=== PATIENT | female | born 1940 | race Caucasian/White ===

== ENCOUNTER 2016-03-30 14:43 | Inpatient (IN) | payer OTHER ==
[~2016-03-30] VITALS: Ht 149.9 cm; Wt 67.4 kg
[2016-03-30] MEDS ORDERED: DUONEB INH ONE ×2 (16:09)
[2016-03-30] MEDS ORDERED: Furosemide 40 MG/4 ML VIAL ONE (16:13)
[2016-03-30] MEDS ORDERED: SALINE FLUSH 10 ML FLUSH PRN (17:30)
[2016-03-30] MEDS ORDERED: ED DILTIAZEM DRIP 125 ML IV ONE (17:31)
[2016-03-30] MEDS ORDERED: DILTIAZEM 50 MG/10 ML VIAL IV ONE (17:32)
[2016-03-30] MEDS ORDERED: DEXTROSE 50% SYRINGE 50 ML IV PRN (19:10)
[2016-03-30] MEDS ORDERED: GLUCAGON 1 MG VIAL IM PRN (19:10)
[2016-03-30] MEDS: DUONEB INH SCH ×2 (19:10→22:53)
[2016-03-30] MEDS ORDERED: CYCLOBENZAPRINE 10 MG TAB PO PRN (19:10)
[2016-03-30] MEDS ORDERED: DIGOXIN 0.125 MG TAB PO SCH (19:15)
[2016-03-30] MEDS ORDERED: CARDIZEM 1 MG/ML DRIP 125 ML IV SCH (19:15)
[2016-03-30] MEDS ORDERED: Carvedilol 6.25 MG TAB PO SCH (21:00)
[2016-03-30 22:00] VITALS: BP_SYST 86; BP_SYST 88; RESP 20; TEMP 95.2; Ht 149.9 cm; Wt 67.4 kg
[2016-03-30 22:55] VITALS: RESP 18
[2016-03-30] MEDS: APIXABAN 2.5 MG TAB PO SCH (23:31)
[2016-03-30] MEDS: LEVEMIR INSULIN SUBQ SCH (23:40)
[2016-03-30 23:45] VITALS: BP_SYST 106; RESP 18; TEMP 96.4
[2016-03-30] MEDS: SALINE FLUSH 10 ML FLUSH SCH (23:45)
[2016-03-31 04:20] VITALS: BP_SYST 112; RESP 16; TEMP 96.3
[2016-03-31] MEDS: SODIUM CHLORIDE 0.9% FLUSH BAG 500 ML IV SCH (06:40)
[2016-03-31] MEDS: LEVOFLOXACIN 500 MG/100 ML 100 ML IV SCH (06:46)
[2016-03-31] MEDS: DUONEB INH SCH ×8 (06:53→22:44)
[2016-03-31 07:57] VITALS: BP_SYST 110; RESP 16; TEMP 96
[2016-03-31] MEDS: APIXABAN 2.5 MG TAB PO SCH ×2 (08:38→20:06)
[2016-03-31] MEDS: Carvedilol 6.25 MG TAB PO SCH ×2 (08:38→20:06)
[2016-03-31] MEDS: Furosemide 40 MG/4 ML VIAL IV SCH ×2 (08:38→17:46)
[2016-03-31] MEDS: SALINE FLUSH 10 ML FLUSH SCH ×2 (08:38→20:06)
[2016-03-31] MEDS: LEVEMIR INSULIN SUBQ SCH ×2 (08:39→17:00)
[2016-03-31] MEDS ORDERED: DIGOXIN 0.125 MG TAB PO SCH (09:00)
[2016-03-31] MEDS ORDERED: Losartan 25 MG TAB PO SCH (09:00)
[2016-03-31 15:17] VITALS: BP_SYST 112; RESP 18; TEMP 97.2
[2016-03-31] MEDS ORDERED: KAYEXOLATE 15 GM/60 ML BTL PO ONE (17:50)
[2016-03-31] MEDS ORDERED: SODIUM CHLORIDE 0.9% 250 ML IV ONE (18:15)
[2016-03-31] MEDS: FLUCONAZOLE 100 MG TAB PO SCH (20:06)
[2016-03-31] MEDS: NYSTATIN SUSP FOR CPD 120 ML, DIPHENHYDRAMINE (FOR COMPOUND) 120 ML, HYDROCORT SOD SUC ... SWISH.SWAL SCH ×3 (20:07)
[2016-03-31 20:32] VITALS: BP_SYST 132; RESP 18; TEMP 97.5
[2016-03-31 23:09] VITALS: BP_SYST 104; RESP 18; TEMP 97.8
[2016-04-01 04:22] VITALS: BP_SYST 130; RESP 18; TEMP 97.1
[2016-04-01] MEDS: SODIUM CHLORIDE 0.9% FLUSH BAG 500 ML IV SCH (06:36)
[2016-04-01] MEDS: DUONEB INH SCH ×7 (07:00→23:26)
[2016-04-01 07:56] VITALS: BP_SYST 110; RESP 18
[2016-04-01] MEDS: LEVEMIR INSULIN SUBQ SCH ×2 (08:00→17:00)
[2016-04-01] MEDS: SALINE FLUSH 10 ML FLUSH SCH ×2 (08:19→20:33)
[2016-04-01] MEDS: LEVOFLOXACIN 500 MG/100 ML 100 ML IV SCH (08:20)
[2016-04-01] MEDS: APIXABAN 2.5 MG TAB PO SCH ×2 (08:20→20:32)
[2016-04-01] MEDS: Carvedilol 6.25 MG TAB PO SCH ×2 (08:20→20:32)
[2016-04-01] MEDS: Furosemide 40 MG/4 ML VIAL IV SCH (08:20)
[2016-04-01] MEDS: NYSTATIN SUSP FOR CPD 120 ML, DIPHENHYDRAMINE (FOR COMPOUND) 120 ML, HYDROCORT SOD SUC ... SWISH.SWAL SCH ×12 (08:27→20:33)
[2016-04-01] MEDS: FLUCONAZOLE 100 MG TAB PO SCH (08:37)
[2016-04-01] MEDS ORDERED: MISSING DOSE XX ONE ×2 (10:25→20:30)
[2016-04-01] MEDS ORDERED: KCL CR 20 MEQ TAB PO ONE (13:20)
[2016-04-01 21:00] VITALS: BP_SYST 114; RESP 18; TEMP 97.4
[2016-04-01 23:55] VITALS: BP_SYST 120; RESP 20; TEMP 97.4
[2016-04-02] MEDS: SODIUM CHLORIDE 0.9% FLUSH BAG 500 ML IV SCH (04:09)
[2016-04-02 04:30] VITALS: BP_SYST 132; RESP 22; TEMP 96.9
[2016-04-02] MEDS: DUONEB INH SCH ×5 (06:24→22:50)
[2016-04-02 07:29] VITALS: BP_SYST 122; RESP 18; TEMP 96.4
[2016-04-02] MEDS: Carvedilol 6.25 MG TAB PO SCH ×2 (07:57→21:39)
[2016-04-02] MEDS: FLUCONAZOLE 100 MG TAB PO SCH (07:57)
[2016-04-02] MEDS: APIXABAN 2.5 MG TAB PO SCH ×2 (07:58→21:39)
[2016-04-02] MEDS: Furosemide 40 MG/4 ML VIAL IV SCH (07:58)
[2016-04-02] MEDS: LEVEMIR INSULIN SUBQ SCH ×2 (07:59→17:53)
[2016-04-02] MEDS: NYSTATIN SUSP FOR CPD 120 ML, DIPHENHYDRAMINE (FOR COMPOUND) 120 ML, HYDROCORT SOD SUC ... SWISH.SWAL SCH ×12 (08:00→21:39)
[2016-04-02] MEDS: SALINE FLUSH 10 ML FLUSH SCH ×2 (08:00→21:55)
[2016-04-02] MEDS: LEVOFLOXACIN 500 MG/100 ML 100 ML IV SCH (08:09)
[2016-04-02 11:36] VITALS: BP_SYST 130; RESP 22; TEMP 94.8
[2016-04-02] MEDS ORDERED: MISSING DOSE XX ONE (11:55)
[2016-04-02] MEDS: TUSSIONEX SUSP UDC PO SCH ×2 (12:22→21:39)
[2016-04-02] MEDS: Furosemide 40 MG TAB PO SCH (16:16)
[2016-04-02 16:23] VITALS: BP_SYST 138; RESP 18; TEMP 96.2
[2016-04-02 20:13] VITALS: BP_SYST 118; RESP 106; RESP 16; TEMP 97.5
[2016-04-03] MEDS: SODIUM CHLORIDE 0.9% FLUSH BAG 500 ML IV SCH (01:03)
[2016-04-03 03:29] VITALS: BP_SYST 100; RESP 16; TEMP 97.5
[2016-04-03] MEDS: DUONEB INH SCH ×5 (06:56→22:37)
[2016-04-03] MEDS: LEVEMIR INSULIN SUBQ SCH ×2 (08:00→17:30)
[2016-04-03 08:12] VITALS: BP_SYST 130; RESP 16; TEMP 95.4
[2016-04-03] MEDS: SALINE FLUSH 10 ML FLUSH SCH ×2 (08:31→19:47)
[2016-04-03] MEDS: FLUCONAZOLE 100 MG TAB PO SCH (08:32)
[2016-04-03] MEDS: Furosemide 40 MG TAB PO SCH ×2 (08:32→17:29)
[2016-04-03] MEDS: Carvedilol 6.25 MG TAB PO SCH ×2 (08:32→20:24)
[2016-04-03] MEDS: APIXABAN 2.5 MG TAB PO SCH ×2 (08:32→20:24)
[2016-04-03] MEDS: LEVOFLOXACIN 500 MG/100 ML 100 ML IV SCH (08:33)
[2016-04-03] MEDS: NYSTATIN SUSP FOR CPD 120 ML, DIPHENHYDRAMINE (FOR COMPOUND) 120 ML, HYDROCORT SOD SUC ... SWISH.SWAL SCH ×12 (08:34→20:25)
[2016-04-03] MEDS ORDERED: MISSING DOSE XX ONE (10:20)
[2016-04-03] MEDS: TUSSIONEX SUSP UDC PO SCH ×2 (11:09→20:24)
[2016-04-03 12:27] VITALS: BP_SYST 100; RESP 16; TEMP 95.2
[2016-04-03] MEDS: LINEZOLID 600 MG/300 ML 300 ML IV SCH (13:39)
[2016-04-03] MEDS ORDERED: MICONAZOLE 2% PWD TOPICAL PRN (15:55)
[2016-04-03 16:10] VITALS: BP_SYST 118; TEMP 96
[2016-04-03 20:18] VITALS: BP_SYST 124; RESP 16; TEMP 96.5
[2016-04-03 23:30] VITALS: BP_SYST 114; RESP 16; TEMP 97.1
[2016-04-04 03:39] VITALS: BP_SYST 124; RESP 16; TEMP 96.7
[2016-04-04] MEDS: SODIUM CHLORIDE 0.9% FLUSH BAG 500 ML IV SCH (06:13)
[2016-04-04] MEDS: DUONEB INH SCH ×5 (06:14→22:30)
[2016-04-04] MEDS: LINEZOLID 600 MG/300 ML 300 ML IV SCH (08:02)
[2016-04-04] MEDS: SALINE FLUSH 10 ML FLUSH SCH ×2 (08:02→21:18)
[2016-04-04 08:14] VITALS: BP_SYST 115; RESP 16; TEMP 97
[2016-04-04] MEDS: LEVEMIR INSULIN SUBQ SCH ×2 (09:22→17:23)
[2016-04-04] MEDS: NYSTATIN SUSP FOR CPD 120 ML, DIPHENHYDRAMINE (FOR COMPOUND) 120 ML, HYDROCORT SOD SUC ... SWISH.SWAL SCH ×12 (09:23→21:18)
[2016-04-04] MEDS: FLUCONAZOLE 100 MG TAB PO SCH (09:23)
[2016-04-04] MEDS: TUSSIONEX SUSP UDC PO SCH ×2 (09:23→21:18)
[2016-04-04] MEDS: Furosemide 40 MG TAB PO SCH ×2 (09:23→17:23)
[2016-04-04] MEDS: Carvedilol 6.25 MG TAB PO SCH ×2 (09:23→21:18)
[2016-04-04] MEDS: APIXABAN 2.5 MG TAB PO SCH ×2 (09:23→21:18)
[2016-04-04 11:27] VITALS: BP_SYST 115; RESP 16; TEMP 96.7
[2016-04-04 16:25] VITALS: BP_SYST 116; RESP 16; TEMP 97.4
[2016-04-04] MEDS ORDERED: MISSING DOSE XX ONE (19:35)
[2016-04-04 20:15] VITALS: BP_SYST 112; RESP 18; TEMP 96.7
[2016-04-04] MEDS: LINEZOLID 600 MG TAB PO SCH (21:18)
[2016-04-04 23:38] VITALS: BP_SYST 112; RESP 18; TEMP 95.2
[2016-04-05 03:52] VITALS: BP_SYST 104; RESP 18; TEMP 96.5
[2016-04-05] MEDS ORDERED: MISSING DOSE XX ONE (05:25)
[2016-04-05] MEDS: SODIUM CHLORIDE 0.9% FLUSH BAG 500 ML IV SCH (05:28)
[2016-04-05 08:00] VITALS: BP_SYST 110; RESP 18; TEMP 96.5
[2016-04-05] MEDS: LEVEMIR INSULIN SUBQ SCH ×2 (08:00→17:22)
[2016-04-05] MEDS: DUONEB INH SCH ×5 (08:05→22:50)
[2016-04-05] MEDS: LINEZOLID 600 MG TAB PO SCH ×2 (08:59→20:16)
[2016-04-05] MEDS: APIXABAN 2.5 MG TAB PO SCH ×2 (08:59→20:16)
[2016-04-05] MEDS: Carvedilol 6.25 MG TAB PO SCH ×2 (09:00→20:16)
[2016-04-05] MEDS: FLUCONAZOLE 100 MG TAB PO SCH (09:00)
[2016-04-05] MEDS: Furosemide 40 MG TAB PO SCH ×2 (09:00→17:22)
[2016-04-05] MEDS: TUSSIONEX SUSP UDC PO SCH ×2 (09:00→20:15)
[2016-04-05] MEDS: NYSTATIN SUSP FOR CPD 120 ML, DIPHENHYDRAMINE (FOR COMPOUND) 120 ML, HYDROCORT SOD SUC ... SWISH.SWAL SCH ×12 (09:00→20:16)
[2016-04-05] MEDS: SALINE FLUSH 10 ML FLUSH SCH ×2 (09:01→20:16)
[2016-04-05 11:48] VITALS: BP_SYST 100; RESP 18; TEMP 97
[2016-04-05 15:54] VITALS: BP_SYST 100; RESP 18; TEMP 96
[2016-04-05 19:59] VITALS: BP_SYST 120; RESP 16; TEMP 94.7
[2016-04-05 22:39] VITALS: BP_SYST 120; RESP 16; TEMP 96.2
[2016-04-06 03:11] VITALS: BP_SYST 98; RESP 16; TEMP 96.2
[2016-04-06] MEDS: SODIUM CHLORIDE 0.9% FLUSH BAG 500 ML IV SCH (05:09)
[2016-04-06] MEDS: DUONEB INH SCH ×5 (06:18→23:04)
[2016-04-06 07:53] VITALS: BP_SYST 116
[2016-04-06] MEDS: LEVEMIR INSULIN SUBQ SCH ×2 (08:00→17:00)
[2016-04-06] MEDS: NYSTATIN SUSP FOR CPD 120 ML, DIPHENHYDRAMINE (FOR COMPOUND) 120 ML, HYDROCORT SOD SUC ... SWISH.SWAL SCH ×12 (09:44→20:10)
[2016-04-06] MEDS: FLUCONAZOLE 100 MG TAB PO SCH (09:44)
[2016-04-06] MEDS: Carvedilol 6.25 MG TAB PO SCH ×2 (09:44→20:08)
[2016-04-06] MEDS: TUSSIONEX SUSP UDC PO SCH ×2 (09:44→20:08)
[2016-04-06] MEDS: APIXABAN 2.5 MG TAB PO SCH ×2 (09:44→20:08)
[2016-04-06] MEDS: LINEZOLID 600 MG TAB PO SCH ×2 (09:44→20:08)
[2016-04-06] MEDS: Furosemide 40 MG TAB PO SCH ×2 (09:44→17:23)
[2016-04-06] MEDS: SALINE FLUSH 10 ML FLUSH SCH ×2 (09:45→20:07)
[2016-04-06] MEDS ORDERED: Furosemide 40 MG/4 ML VIAL IV ONE (11:45)
[2016-04-06 11:57] VITALS: BP_SYST 104; TEMP 95.3
[2016-04-06 16:38] VITALS: BP_SYST 108; RESP 18; TEMP 96.1
[2016-04-06 19:34] VITALS: BP_SYST 110; RESP 16; TEMP 96
[2016-04-06 23:49] VITALS: BP_SYST 110; RESP 16; TEMP 96.3
[2016-04-07] MEDS: SODIUM CHLORIDE 0.9% FLUSH BAG 500 ML IV SCH (01:01)
[2016-04-07 03:47] VITALS: BP_SYST 119; RESP 18; TEMP 97.5
[2016-04-07] MEDS: DUONEB INH SCH ×5 (06:48→22:28)
[2016-04-07 08:16] VITALS: BP_SYST 132; RESP 18; TEMP 96
[2016-04-07] MEDS: LEVEMIR INSULIN SUBQ SCH ×2 (08:40→17:18)
[2016-04-07] MEDS: FLUCONAZOLE 100 MG TAB PO SCH (08:40)
[2016-04-07] MEDS: APIXABAN 2.5 MG TAB PO SCH ×2 (08:40→21:15)
[2016-04-07] MEDS: SALINE FLUSH 10 ML FLUSH SCH ×2 (08:40→21:18)
[2016-04-07] MEDS: NYSTATIN SUSP FOR CPD 120 ML, DIPHENHYDRAMINE (FOR COMPOUND) 120 ML, HYDROCORT SOD SUC ... SWISH.SWAL SCH ×12 (08:41→21:17)
[2016-04-07] MEDS: Carvedilol 6.25 MG TAB PO SCH ×2 (08:41→21:14)
[2016-04-07] MEDS: Furosemide 40 MG TAB PO SCH (08:41)
[2016-04-07] MEDS: LINEZOLID 600 MG TAB PO SCH ×2 (08:41→21:14)
[2016-04-07] MEDS: TUSSIONEX SUSP UDC PO SCH ×2 (08:45→21:15)
[2016-04-07] MEDS ORDERED: METOLAZONE 5 MG TAB PO ONE (09:15)
[2016-04-07 11:50] VITALS: BP_SYST 110; RESP 18; TEMP 96.4
[2016-04-07 15:59] VITALS: BP_SYST 106; RESP 16; TEMP 96.2
[2016-04-07 19:59] VITALS: BP_SYST 116; RESP 20; TEMP 97.4
[2016-04-08 00:14] VITALS: BP_SYST 100; RESP 18; TEMP 96.7
[2016-04-08] MEDS: SODIUM CHLORIDE 0.9% FLUSH BAG 500 ML IV SCH (04:25)
[2016-04-08 04:31] VITALS: BP_SYST 110; RESP 18; TEMP 96.4
[2016-04-08] MEDS: DUONEB INH SCH ×5 (07:22→23:09)
[2016-04-08] MEDS: LEVEMIR INSULIN SUBQ SCH ×2 (08:00→17:22)
[2016-04-08] MEDS ORDERED: DIGOXIN 0.25 MG TAB PO ONE (08:00)
[2016-04-08 08:07] VITALS: BP_SYST 118; RESP 18; TEMP 92.5
[2016-04-08] MEDS ORDERED: MISSING DOSE XX ONE ×2 (08:35→21:15)
[2016-04-08] MEDS: SALINE FLUSH 10 ML FLUSH SCH ×2 (08:45→21:17)
[2016-04-08] MEDS: TUSSIONEX SUSP UDC PO SCH ×2 (08:45→21:17)
[2016-04-08] MEDS: APIXABAN 2.5 MG TAB PO SCH ×2 (08:45→21:17)
[2016-04-08] MEDS: LINEZOLID 600 MG TAB PO SCH ×2 (08:47→21:17)
[2016-04-08] MEDS: Carvedilol 6.25 MG TAB PO SCH ×2 (08:47→21:17)
[2016-04-08] MEDS: NYSTATIN SUSP FOR CPD 120 ML, DIPHENHYDRAMINE (FOR COMPOUND) 120 ML, HYDROCORT SOD SUC ... SWISH.SWAL SCH ×12 (08:49→21:18)
[2016-04-08] MEDS ORDERED: METOLAZONE 5 MG TAB PO SCH (09:00)
[2016-04-08] MEDS ORDERED: Furosemide 80 MG TAB PO SCH (09:00)
[2016-04-08 11:08] VITALS: BP_SYST 118; RESP 16; TEMP 98.4
[2016-04-08] MEDS ORDERED: DIGOXIN 0.125 MG TAB PO SCH (12:00)
[2016-04-08 15:40] VITALS: BP_SYST 114; RESP 16; TEMP 97.2
[2016-04-08 20:13] VITALS: BP_SYST 120; RESP 20; TEMP 96.9
[2016-04-09 00:15] VITALS: BP_SYST 118; RESP 20; TEMP 97
[2016-04-09 04:00] VITALS: BP_SYST 116; RESP 18; TEMP 96.8
[2016-04-09] MEDS: SODIUM CHLORIDE 0.9% FLUSH BAG 500 ML IV SCH (05:45)
[2016-04-09] MEDS: DUONEB INH SCH ×2 (06:21→11:32)
[2016-04-09 07:44] VITALS: BP_SYST 108; RESP 14; TEMP 97.8
[2016-04-09] MEDS: SALINE FLUSH 10 ML FLUSH SCH (08:25)
[2016-04-09] MEDS: LEVEMIR INSULIN SUBQ SCH (08:26)
[2016-04-09] MEDS: APIXABAN 2.5 MG TAB PO SCH (08:26)
[2016-04-09] MEDS: NYSTATIN SUSP FOR CPD 120 ML, DIPHENHYDRAMINE (FOR COMPOUND) 120 ML, HYDROCORT SOD SUC ... SWISH.SWAL SCH ×6 (08:26→12:17)
[2016-04-09] MEDS: TUSSIONEX SUSP UDC PO SCH (08:26)
[2016-04-09] MEDS: LINEZOLID 600 MG TAB PO SCH (08:26)
[2016-04-09] MEDS: Carvedilol 6.25 MG TAB PO SCH (08:26)
[2016-04-09] MEDS ORDERED: Furosemide 40 MG TAB PO ONE (11:20)
[2016-04-09] MEDS ORDERED: METOLAZONE 5 MG TAB PO ONE (11:25)
[2016-04-09] MEDS ORDERED: Furosemide 80 MG TAB PO ONE (11:30)
[2016-04-09 11:43] VITALS: BP_SYST 122; RESP 16; TEMP 97.1
[2016-04-09 12:39] VITALS: BP_SYST 122; RESP 16; TEMP 97.1
[2016-04-10] MEDS ORDERED: METOLAZONE 5 MG TAB PO SCH (09:00)
[2016-04-10] MEDS ORDERED: Furosemide 80 MG TAB PO SCH (09:00)
[2016-04-10] MEDS ORDERED: Furosemide 40 MG TAB PO SCH (09:00)
[2016-04-10] MEDS ORDERED: DIGOXIN 0.125 MG TAB PO SCH (12:00)
== END 2016-04-09 14:54 | disposition home or self-care (01) | DRG 291 ==
LOC: ENRESERVDT → ENRESERVTM → ER 14:43 → EMR 17:32 → ENPENDDIS 17:32 → 4THE 20:23
PROVIDERS: ADMIT Internal Medicine Cardiovascular Disease; ATTEND Internal Medicine Cardiovascular Disease
CPT/HCPCS: 36600; 71010; 71020; 80048; 80053; 80162; 81003; 82040; 82550; 82553; 82570; 82803; 82947; 83735; 83880; 84100; 84156; 84300; 84484; 85025; 86738; 87071; 87077; 87088; 87186; 87205; 87278; 87299; 93005; 94640; 94799; 96365; 96366; 96375